=== PATIENT | female | born 1995 | race Two or more races ===

== ENCOUNTER → 2017-03-26 | Outpatient (CLI) | payer OTHER ==
[~2017-03-26] MED LIST: PREN1CAP PO; PREN1MIS10; TERC0.8C VAGINAL
== END ==
LOC: HPND 12:36
PROVIDERS: ATTEND Obstetrics & Gynecology
DX: O35.8XX0 Maternal care for other (suspected) fetal abnormality and damage, not applicable or unspecified (principal); O26.13 Low weight gain in pregnancy, third trimester; Z36.9 Encounter for antenatal screening, unspecified
CPT/HCPCS: 76811

== ENCOUNTER 2017-04-03 14:16 | Emergency (ER) | payer OTHER ==
--- NOTE | 2017-04-03 15:11 | PD ---
HPI Chief Complaint Possible rupture membranes Date Seen: Apr 03, 2017 Time Seen: 15:05 Travel History International Travel<30 Days: No Contact w/Intl Traveler<30Days: No History of Present Illness HPI Patient is a 22-year-old at 32/4 weeks presenting with possible rupture membranes. [facility] is a [facility] patient Estimated date of delivery is 05/25/17 Visit she noticed leaking of fluid going down her leg at 2:58 PM yesterday. States the fluid appeared clear. States that she is having contractions but attributes them to [place]. Denies vaginal bleeding, endorses movement. No complications thus far. Weeks Gestation: 32 Para: 0 : 2 Miscarriage: 1 History Past Medical History Medical History: Denies Significant Hx Obstetric History Obstetric History History of miscarriage in 12/2015 - states that occurred early in Past Surgical History Surgical History: No Previous Surgery Family History Family History: Negative Social History Alcohol Use: No Tobacco Use: No Substance Abuse: No Allergies-Medications (Allergen,Severity, Reaction): Coded Allergies: No Known Allergies (Verified Adverse Reaction, Unknown, 04/03/17) Home Meds Active Scripts Vit W/ Fe Polysacch C (Vitafol Ultra 29-0.6-0.4-200 mg) 1 Cap Cap, 1 TAB PO DAILY, #90 BOTTLE 4 Refills Prov:Annette Aponte 11/12/16 Iron W/ Vitamins (Vitafol) 1 Tab Tab Prov:Annette Aponte 11/12/16 Reported Medications Vit W/ Ferrous Fumara (One A Day Womens 28-0.8 & 223 mg) 1 Mis Mis 11/12/16 Discontinued Scripts Terconazole Vaginal Cream (Terconazole Vaginal Cream) 0.8 % Cream, 1 APPL VAGINAL HS for Fungal Infection, #20 GM 1 Refill For 3 days. Prov:Carmelita Vieira CNM [facility] 02/13/17 Review of Systems Except as stated in HPI: all other systems reviewed are Neg Physical Exam Narrative GENERAL: Well-nourished, well-developed patient. SKIN: Warm and dry. HEAD: Normocephalic and atraumatic. EYES: No scleral icterus. No injection or drainage. NECK: Supple, trachea midline. No JVD. CARDIOVASCULAR: Regular rate and rhythm without murmurs, gallops, or rubs. RESPIRATORY: Breath sounds equal bilaterally. No accessory muscle use. ABDOMEN/GI: Abdomen soft, non-tender, bowel sounds present, no rebound, no guarding GENITOURINARY: Cervix: Posterior Dilatation: 0 Effacement: [-] Station: [-] Presentation: [-] Membranes: [intact or ruptured] Uterine Contractions: Appears to be Uterine irritability FHT's: Category: 1 Baseline: 134 Reactive: Yes Variability: Moderate Decels: none EXTREMITIES: No cyanosis or edema. NEUROLOGICAL: Awake and alert. Motor and sensory grossly within normal limits. Normal speech. Data Data Vital Signs Reviewed: Yes Labs Initial Lab Date: Nov 12, 2016 Blood Type: B D (Rh) Type: Positive Antibody Screen: negative Hematocrit (%): 38.2 Hemoglobin (dL): 12.9 Pap Test: normal (+YEAST) Rubella: Not immune VDRL: negative Urine Screen: Other Urine Culture: gbs POS HBsAg: negative HIV: negative Chlamydia: negative Gonorrhea: negative Cystic Fibrosis: negative TSH: 2.03 Sickle Cell: Positive MSAFP/Multiple Markers: negative (NIPT NEG/FEMALE,MSAFP NEG) Visit Date: Mar 13, 2017 Hematocrit (%): 39.1 Hemoglobin (dL): 13.1 Diabetes Screen - 1-hr GGT: 98 HIV: Negative Hepatitis B: Negative MDM Plan Patient is a 22-year-old at 32/4. Category 1 tracing is reassuring, cervix is closed Amnisure negative No concern for active labor Discharge patient with instructions to return with rupture fluids, vaginal bleeding, frequent, painful contractions DW Dr. Butler Diagnosis Diagnosis: Primary Impression: 32 weeks gestation of Disposition: DISCHARGE HOME Condition: Stable Cori Lai MD R1 Apr 03, 2017 15:11
== END 2017-04-03 15:30 | disposition home or self-care (01) ==
LOC: HOBED 14:16
DX: O26.893 Other specified pregnancy related conditions, third trimester (principal); Z3A.32 32 weeks gestation of pregnancy
CPT/HCPCS: 84112; 99283

== ENCOUNTER 2017-05-17 15:31 | Inpatient (IN) | payer OTHER ==
[~2017-05-17] VITALS: Ht 157.5 cm; Wt 65.0 kg
[2017-05-17] VITALS (20 sets, daily range): BP systolic 119–151; BP diastolic 78–93; PULSE 51–69; RESP 18; TEMP 97.8–98
[~2017-05-17 15:31] MED LIST changes: +AMOX500T PO; +TERC.4%V VAGINAL; -TERC0.8C VAGINAL
[2017-05-17] MEDS ORDERED: LACTATED RINGER'S 1000 ML INJ 1,000 ML IV PRN (16:34)
--- NOTE | 2017-05-17 16:34 | PD ---
HPI Chief Complaint ctx, ?LOF Date Seen: May 17, 2017 Time Seen: 16:27 Travel History International Travel<30 Days: No Contact w/Intl Traveler<30Days: No Known Affected Area: No History of Present Illness HPI 22y/o @ 38.6wks. She has PNC at [facility]. She presents today reporting ctx since noon which are painful and ?LOF right before ctx started. She reports that baby is moving well. No VB. She states that she was 1cm in the office last week. She states that she is GBS+ and recently took amoxicillin for it. Weeks Gestation: 38 Para: 0 : 2 History Past Medical History Medical History: Denies Significant Hx Obstetric History Obstetric History AB x1 current Past Surgical History Narrative Surgical wisdom teeth extraction Family History Family History: Negative Social History Alcohol Use: No Tobacco Use: No Substance Abuse: No Allergies-Medications (Allergen,Severity, Reaction): Coded Allergies: No Known Allergies (Verified Adverse Reaction, Unknown, 04/29/17) Home Meds Active Scripts Amoxicillin (Amoxicillin) 500 Mg Tab, 500 MG PO TID for Infection for 7 Days, # 21 TAB 0 Refills Prov:Carmelita Vieira CNM [facility] [place] 05/05/17 Terconazole Vaginal Cream (Terazol 7 Vaginal Cream) 0.4 % Cream, 1 APPL VAGINAL HS for Fungal Infection, #45 GM 0 Refills 1 applicatorful intravaginally x 7 nights Prov:Rasta Gaspar MD 04/29/17 Vit W/ Fe Polysacch C (Vitafol Ultra 29-0.6-0.4-200 mg) 1 Cap Cap, 1 TAB PO DAILY, #90 BOTTLE 4 Refills Prov:Annette Aponte 11/12/16 Iron W/ Vitamins (Vitafol) 1 Tab Tab Prov:Annette Aponte 11/12/16 Reported Medications Vit W/ Ferrous Fumara (One A Day Womens 28-0.8 & 223 mg) 1 Mis Mis 11/12/16 Review of Systems Except as stated in HPI: all other systems reviewed are Neg Physical Exam Narrative General: well developed, well nourished, no acute distress HEENT: normocephalic atraumatic, extraocular movements intact, neck supple Abdomen: soft, gravid, nontender, nondistended Uterus: fundus term Extremities: full range of motion Skin: normal coloration, no rashes, no suspicious skin lesions noted Neurologic: cranial nerves 2-12 grossly intact, normal muscle tone, normal gait Psychiatric: normal mood and affect, appropriate FHTs: 135, +accels, no decels, moderate variability, reactive Justin: ctx q2-3m Cvx: /50/-2 Data Data Vital Signs Reviewed: Yes Orders Orders Vital Signs (Adult) .ON ADMISSION (05/17/17 16:25) ^ Labor Status (05/17/17 16:25) ^ Non Stress Test (05/17/17 16:) Pamg-1 Test .ONCE (05/17/17 16:25) Group B Strep: Positive MDM Plan 22y/o @ 38.6wks with ctx and ?LOF -- amnisure positive -- FHTs cat 1 -- cvx 250/-2 -- admit to L&D -- CLD, epidural/mayo PRN -- pitocin PRN -- PCN for GBS+ Diagnosis Diagnosis: Primary Impression: 38 weeks gestation of Additional Impressions: Leakage of amniotic fluid Uterine contractions during GBS (group B Streptococcus carrier), +RV culture, currently Anahi Rivers MD May 17, 2017 16:33
--- NOTE | 2017-05-17 16:38 | HHI.PR ---
[facility] Note Note HPI HPI Chief Complaint ctx, ?LOF Date Seen: May 17, 2017 Time Seen: 16:27 Travel History International Travel<30 Days: No Contact w/Intl Traveler<30Days: No Known Affected Area: No History of Present Illness HPI 22y/o @ 38.6wks. She has PNC at [facility]. She presents today reporting ctx since noon which are painful and ?LOF right before ctx started. She reports that baby is moving well. No VB. She states that she was 1cm in the office last week. She states that she is GBS+ and recently took amoxicillin for it. Weeks Gestation: 38 Para: 0 : 2 History (Limited) History Past Medical History Medical History: Denies Significant Hx Obstetric History Obstetric History AB x1 current Past Surgical History Narrative Surgical wisdom teeth extraction Family History Family History: Negative Social History Alcohol Use: No Tobacco Use: No Substance Abuse: No Allergies-Medications Allergies-Medications (Allergen,Severity, Reaction): Coded Allergies: No Known Allergies (Verified Adverse Reaction, Unknown, 04/29/17) Home Meds Active Scripts Amoxicillin (Amoxicillin) 500 Mg Tab, 500 MG PO TID for Infection for 7 Days, # 21 TAB 0 Refills Prov:Carmelita Vieira CNM [facility] 05/05/17 Terconazole Vaginal Cream (Terazol 7 Vaginal Cream) 0.4 % Cream, 1 APPL VAGINAL HS for Fungal Infection, #45 GM 0 Refills 1 applicatorful intravaginally x 7 nights Prov:Rasta Gaspar MD 04/29/17 Vit W/ Fe Polysacch C (Vitafol Ultra 29-0.6-0.4-200 mg) 1 Cap Cap, 1 TAB PO DAILY, #90 BOTTLE 4 Refills Prov:Annette Aponte 11/12/16 Iron W/ Vitamins (Vitafol) 1 Tab Tab Prov:Annette Aponte 11/12/16 Reported Medications Vit W/ Ferrous Fumara (One A Day Womens 28-0.8 & 223 mg) 1 Mis Mis 11/12/16 ROS Review of Systems Except as stated in HPI: all other systems reviewed are Neg Physical Exam Physical Exam Narrative General: well developed, well nourished, no acute distress HEENT: normocephalic atraumatic, extraocular movements intact, neck supple Abdomen: soft, gravid, nontender, nondistended Uterus: fundus term Extremities: full range of motion Skin: normal coloration, no rashes, no suspicious skin lesions noted Neurologic: cranial nerves 2-12 grossly intact, normal muscle tone, normal gait Psychiatric: normal mood and affect, appropriate FHTs: 135, +accels, no decels, moderate variability, reactive [place]: ctx q2-3m Cvx: /-2 Data Data Data Vital Signs Reviewed: Yes Orders Orders Vital Signs (Adult) .ON ADMISSION (05/17/17 16:25) ^ Labor Status (05/17/17 16:25) ^ Non Stress Test (05/17/17 16:25) Pamg-1 Test .ONCE (05/17/17 16:25) Group B Strep: Positive MDM MDM Plan 22y/o @ 38.6wks with ctx and ?LOF -- amnisure positive -- FHTs cat 1 -- cvx /-2 -- admit to L&D -- CLD, epidural/mayo PRN -- pitocin PRN -- PCN for GBS+ Diagnosis Diagnosis: Primary Impression: 38 weeks gestation of Additional Impressions: Leakage of amniotic fluid Uterine contractions during GBS (group B Streptococcus carrier), +RV culture, currently Anahi Rivers MD May 17, 2017 16:33 Anaih Rivers MD May 17, 2017 16:38
[2017-05-17] MEDS ORDERED: OXYTOCIN 30 UNITS-500ML PREMIX 500 ML IV PRN (16:45)
[2017-05-17] MEDS ORDERED: SODIUM CHLORID 0.9% 500 ML INJ 500 ML IV PRN (16:45)
[2017-05-17] MEDS ORDERED: CITRIC ACID-SODIUM CITRATE LIQ 30 ML UDC PO SCH (16:45)
[2017-05-17] MEDS ORDERED: MINERAL OIL 10 ML VIAL TOPICAL PRN (16:45)
[2017-05-17] MEDS ORDERED: LIDOCAINE HCL 1% 50 ML VIAL INFIL PRN (16:45)
[2017-05-17] MEDS ORDERED: PENICILLIN G POTASSIUM INJ 5,000,000 UNITS in SODIUM CHLORIDE 0.9% INJ 100 ML IV ONE (16:45)
[2017-05-17] MEDS ORDERED: LIDOCAINE HCL 1% 50 ML VIAL I-DERMAL PRN (16:45)
[2017-05-17] MEDS ORDERED: ONDANSETRON HCL 4 MG/2 ML VIAL IV PUSH PRN (16:45)
[2017-05-17] MEDS ORDERED: OXYTOCIN 30 UNITS-500ML PREMIX 500 ML IV ONE (16:45)
[2017-05-17] MEDS ORDERED: SODIUM CHLOR 0.9% 1000 ML INJ 1,000 ML IV PRN (16:54)
[2017-05-17 17:14] LABS: BACTERIA, URINE RARE /hpf; BILIRUBIN, URINE NEG (NEG); BLOOD, URINE NEG (NEG); GLUCOSE,URINE NEG (NEG); KETONE, URINE NEG (NEG); NITRITE,URINE NEG (NEG); PH, URINE 6.5 (5.0-8.5); SQUAMOUS EPITHELIAL CELL URINE 6 /hpf (0-5); URINE COLOR YELLOW (YELLW/STRAW); URINE LEUKOCYTE ESTERASE MOD (NEG)
[2017-05-17] MEDS: LACTATED RINGER'S 1000 ML INJ 1,000 ML IV SCH (17:14)
[2017-05-17 17:20] LABS: AUTOMATED NEUTROPHIL # 10.9 TH/MM3 (1.8-7.7); BASOPHIL % 0.2 % (0.0-2.0); EOSINOPHIL % 0.3 % (0.0-4.0); HEMATOCRIT 38.5 % (35.0-46.0); HEMOGLOBIN 13.2 GM/DL (11.6-15.3); LYMPH % 21.6 % (9.0-44.0); LYMPHOCYTE # 3.3 TH/MM3 (1.0-4.8); MEAN CELL VOLUME 90.9 FL (80.0-100.0); MEAN CORPUSCULAR HEMOGLOBIN 31.2 PG (27.0-34.0); MEAN CORPUSCULAR HGB CONC 34.3 % (32.0-36.0); MEAN PLATELET VOLUME 10.1 FL (7.0-11.0); MONO % 6.9 % (0.0-8.0); MONOCYTE # 1.1 TH/MM3 (0-0.9); PLATELET COUNT 180 TH/MM3 (150-450); RED BLOOD COUNT 4.24 MIL/MM3 (4.00-5.30); RED CELL DISTRIBUTION WIDTH 14.4 % (11.6-17.2); WHITE BLOOD COUNT 15.3 TH/MM3 (4.0-11.0)
[2017-05-17] MEDS: PENICILLIN G POTASSIUM INJ 2,500,000 UNITS in SODIUM CHLORIDE 0.9% INJ 100 ML IV SCH (21:31)
[2017-05-17] MEDS ORDERED: fentaNYL 2MCG-BUPIV 0.125% INJ 100 ML ONE (23:51)
[2017-05-18] VITALS (91 sets, daily range): BP systolic 119–167; BP diastolic 64–97; PULSE 51–112; RESP 16–20; TEMP 97.7–98.9
[2017-05-18] MEDS ORDERED: fentaNYL 2MCG-BUPIV 0.125% 100 ML EPIDURAL SCH (01:00)
[2017-05-18] MEDS ORDERED: NO SYSTEM NARCOTICS PRN (01:00)
[2017-05-18] MEDS ORDERED: DO NOT ADMINISTER ANTICOAGULANTS PRN (01:00)
[2017-05-18] MEDS ORDERED: ePHEDrine/NS 25 MG/5 ML SYRINGE IV PUSH PRN (01:00)
[2017-05-18] MEDS: PENICILLIN G POTASSIUM INJ 2,500,000 UNITS in SODIUM CHLORIDE 0.9% INJ 100 ML IV SCH ×2 (01:11→05:14)
[2017-05-18] MEDS: LACTATED RINGER'S 1000 ML INJ 1,000 ML IV SCH ×4 (01:13→09:26)
--- NOTE | 2017-05-18 08:21 | PD.LABORPN ---
Subjective Subjective In active labor, epidural in place, moderate back pain. Otherwise reporting no concerns. (Mandeep Krik MD) Objective Vital Signs Vital Signs Date Time Temp Pulse Resp B/P (MAP) Pulse Ox O2 Delivery O2 Flow Rate FiO2 05/18/17 07:31 60 146/69 (94) 05/18/17 07:11 98.0 18 05/18/17 07:00 65 146/76 (99) 05/18/17 06:31 59 142/71 (94) 05/18/17 06:24 52 18 119/71 (87) 05/18/17 06:00 55 145/80 (101) 05/18/17 05:30 53 148/76 (100) 05/18/17 05:20 70 05/18/17 05:10 57 05/18/17 05:05 59 05/18/17 05:01 148/81 (103) 05/18/17 05:00 97.7 05/18/17 05:00 18 05/18/17 04:55 59 05/18/17 04:40 59 05/18/17 04:31 145/84 (104) 05/18/17 04:25 56 05/18/17 04:10 54 05/18/17 04:05 61 05/18/17 04:01 147/85 (105) 05/18/17 04:00 18 05/18/17 03:55 60 05/18/17 03:40 56 05/18/17 03:30 59 137/79 (98) 05/18/17 03:25 54 05/18/17 03:10 57 05/18/17 03:05 60 05/18/17 03:01 53 144/75 (98) 05/18/17 03:00 98.0 18 05/18/17 02:55 57 05/18/17 02:40 61 05/18/17 02:37 145/82 (103) 05/18/17 02:30 18 05/18/17 02:25 55 05/18/17 02:20 54 05/18/17 02:15 167/87 (113) 05/18/17 02:10 54 05/18/17 02:03 150/93 (112) 05/18/17 02:00 55 157/93 (114) 05/18/17 02:00 18 05/18/17 01:55 58 05/18/17 01:50 55 05/18/17 01:45 149/92 (111) 05/18/17 01:40 54 05/18/17 01:30 18 146/89 (108) 05/18/17 01:25 59 05/18/17 01:15 53 143/85 (104) 05/18/17 01:15 55 05/18/17 01:14 18 05/18/17 01:10 52 05/18/17 01:10 18 05/18/17 01:00 98.0 05/18/17 01:00 51 154/72 (99) 05/18/17 00:59 51 133/71 (91) 05/18/17 00:56 130/83 (99) 05/18/17 00:54 130/78 (95) 05/18/17 00:52 135/78 (97) 05/18/17 00:51 136/79 (98) 05/18/17 00:48 132/78 (96) 05/18/17 00:46 133/74 (93) 05/18/17 00:45 126/75 (92) 05/18/17 00:42 60 134/84 (101) 05/18/17 00:38 60 127/76 (93) 05/18/17 00:36 131/87 (102) 05/18/17 00:32 59 126/72 (90) 05/18/17 00:28 64 131/72 (91) 05/18/17 00:22 138/77 (97) Objective Pelvic Exam: Cervix: midposition Dilatation: 5 cm Effacement: 100% Station: -2 Presentation: vertex Membranes: ruptured Uterine Contractions: every 3-5 min FHT's: Category: 1 Baseline: 130 Reactive: Y Variability: moderate Decels: N Weeks Gestation: 38 Pt started active labor?: Yes Artificial rupture of membrane: Yes Artificial ROM date: May 18, 2017 Artifical ROM time: 08:20 (Mandeep Kirk MD) Assessment/Plan Assessment and Plan 22yo in active labor IUP, category 1 tracing, continue to monitor s/p AROM Epidural anesthesia GBS negative Continue routine labor care (Mandeep Kirk MD) Assessment and Plan Patient seen and evaluated with resident under direct supervision, agree with assessment and plan. (Marcelino Alvarado MD) Mandeep Kirk MD May 18, 2017 08:21 Marcelino Alvarado MD May 19, 2017 07:37
[2017-05-18] MEDS ORDERED: PENICILLIN G POTASSIUM INJ 2,500,000 UNITS in SODIUM CHLORIDE 0.9% INJ 100 ML IV SCH (10:00)
--- NOTE | 2017-05-18 11:58 | PD.OB.DELI ---
Weeks gestation: 38 Pt started active labor?: Yes Artificial rupture of membrane: Yes Artificial ROM date: May 18, 2017 Artifical ROM time: 08:20 Delivery date: May 18, 2017 Delivery time: 11:34 One Minute : 9 Five Minute : 9 Weight: 2740 g Placenta: Spontaneous delivery Laceration: Perineal laceration, 2 deg Repair: Chromic running Estimated blood loss: 300 mL Additional Information Delivery and repair by Dr. Kirk Supervised by Dr. Alvarado (Mandeep Kirk MD) Additional Information Patient seen and evaluated with resident under direct supervision, agree with assessment and plan. (Marcelino Alvarado MD) Mandeep Kirk MD May 18, 2017 11:58 Marcelino Alvarado MD May 18, 2017 14:24
[2017-05-18] MEDS ORDERED: ZOLPIDEM TARTRATE 5 MG TAB PO PRN (12:15)
[2017-05-18] MEDS ORDERED: SODIUM CHLORIDE 0.9% FLUSH 10 ML FLUSH IV FLUSH PRN (12:15)
[2017-05-18] MEDS ORDERED: ONDANSETRON ODT 4 MG TAB PO PRN (12:15)
[2017-05-18] MEDS ORDERED: ACETAMINOPHEN 325 MG TAB PO PRN (12:15)
[2017-05-18] MEDS ORDERED: DOCUSATE SODIUM 50 MG/SENNA 8.6 MG TAB PO PRN (12:15)
[2017-05-18] MEDS ORDERED: BENZOCAINE 20% TOPICAL SPRAY 60 ML CAN TOPICAL PRN (12:15)
[2017-05-18] MEDS ORDERED: OXYTOCIN 30 UNITS-500ML PREMIX 500 ML IV SCH (12:15)
[2017-05-18] MEDS ORDERED: ALUMINUM/MAGNESIUM/SIMETH 30 ML CUP PO PRN (12:15)
[2017-05-18] MEDS: IBUPROFEN 800 MG TAB PO PRN ×2 (13:52→23:24)
[2017-05-18] MEDS: WITCH HAZEL 50%/GLYCERIN 12.5% 40 PAD JAR TOPICAL PRN (15:35)
[2017-05-18] MEDS ORDERED: MEASLES, MUMPS, RUBELLA VACCINE 0.5 ML VIAL SQ ONE (16:00)
[2017-05-18] MEDS ORDERED: DIPHTH/TETANUS/ACEL PERTUSSIS (BOOSTER) 0.5 ML VIAL/PFS IM ONE (16:00)
[2017-05-18] MEDS ORDERED: SODIUM CHLORIDE 0.9% FLUSH 10 ML FLUSH IV FLUSH SCH (21:00)
[2017-05-19 08:00] VITALS: BP 156/97; PULSE 59; RESP 16; TEMP 98.3
--- NOTE | 2017-05-19 08:37 | HHI.OB ---
Subjective Post Day: 1 Remarks day # 1. AFVSS overnight. Pain well-controlled. Decreased lochia. Denies dysuria. No breast tenderness. She is feeding the baby via breast. Appetite good. No nausea or vomiting. + flatus. no bowel movement. Ambulating well. Denies calf pain, shortness of breath, or cough. Otherwise, she is doing well this morning and has no other complaints. (Мария Chairez MD R1) Remarks Patient seen and evaluated with resident under direct supervision, agree with assessment and plan. (Marcelino Alvarado MD) Objective Vitals/I&O Vital Signs Date Time Temp Pulse Resp B/P (MAP) Pulse Ox O2 Delivery O2 Flow Rate FiO2 05/18/17 19:34 52 157/92 (113) 05/18/17 15:36 71 142/86 (104) 05/18/17 14:15 147/76 (99) 05/18/17 14:05 97.9 59 16 137/91 (106) 05/18/17 13:36 18 05/18/17 13:30 90 129/73 (91) 05/18/17 13:16 130/73 (92) 05/18/17 13:16 77 05/18/17 13:00 139/87 (104) 05/18/17 13:00 83 05/18/17 12:58 20 05/18/17 12:45 86 127/81 (96) 05/18/17 12:31 90 131/67 (88) 05/18/17 12:15 78 131/81 (98) 05/18/17 12:00 98.6 83 20 134/86 (102) 05/18/17 12:00 83 134/86 (102) 05/18/17 11:00 112 137/64 (88) 05/18/17 10:30 70 136/81 (99) 05/18/17 10:00 63 123/75 (91) 05/18/17 09:45 98.7 05/18/17 09:31 18 05/18/17 09:30 64 128/86 (100) 05/18/17 09:00 75 126/81 (96) 05/18/17 08:45 16 Objective Remarks GENERAL: Well-nourished, well-developed patient. CARDIOVASCULAR: Regular rate and rhythm without murmurs, gallops, or rubs. RESPIRATORY: Breath sounds equal bilaterally. No accessory muscle use. ABDOMEN/GI: Abdomen soft, non-tender. Fundus: Firm, non-tender at umbilicus. GENITOURINARY: Light to moderate bleeding. EXTREMITIES: No cyanosis or edema, non-tender, without signs of DVT. Medications and IVs Current Medications Medications (Trade) Dose Ordered Sig/Francesco Route Start Time Stop Time Status Last Admin (Xylocaine 1% Inj (50 ml)) 0.1 ml UNSCH X1 PRN I-DERMAL 05/17/17 16:45 05/20/17 16:44 (Bicitra Liq) 30 ml INFORMATICS PHYSICIAN LIAISON PO 05/17/17 16:45 05/21/17 16:44 (Xylocaine 1% Inj (50 ml)) 10 ml UNSCH X1 PRN INFIL 05/17/17 16:45 05/19/17 16:44 (Muri-Lube Oil) 10 ml UNSCH PRN TOPICAL 05/17/17 16:45 (NS Flush) 2 ml BID IV FLUSH 05/18/17 21:00 (NS Flush) 2 ml UNSCH PRN IV FLUSH 05/18/17 12:15 (Tylenol) 650 mg Q4H PRN PO 05/18/17 12:15 (Motrin) 800 mg Q8H PRN PO 05/18/17 12:15 05/18/17 23:24 (Americaine 20% Top Spr) 1 spray Q4H PRN TOPICAL 05/18/17 12:15 05/18/17 15:35 (Tucks Pads) 1 applic QID PRN TOPICAL 05/18/17 12:15 05/18/17 15:35 (Yanely-Colace) 2 tab Q12H PRN PO 05/18/17 12:15 05/18/17 23:24 (Ambien) 5 mg HS PRN PO 05/18/17 12:15 (Mag-Al Plus Susp Liq) 15 ml Q8H PRN PO 05/18/17 12:15 (Zofran Odt) 4 mg Q6H PRN PO 05/18/17 12:15 (Мария Chairez MD R1) Assessment/Plan Problem List: (1) Vaginal delivery ICD Codes: O80 - Encounter for full-term uncomplicated delivery Status: Acute Assessment and Plan 22 y/o who is PPD# 1 s/p . -Continue routine care. -Percocet and Motrin PRN pain. -Encouraged OOB. Advised pelvic rest for 6 wks. -Will need a f/u appt. within 6 wks. -Re: ctrl, she would like to consider her options. -D/c in 1-2 more days. wdw OB attending (Мария Chairez MD R1) Мария Chairez MD R1 May 19, 2017 08:37 Marcelino Alvarado MD May 19, 2017 09:26
[2017-05-19] MEDS: IBUPROFEN 800 MG TAB PO PRN (14:36)
[2017-05-19 20:00] VITALS: BP 152/96; PULSE 66; RESP 18; TEMP 98; O2SAT 97
[2017-05-19] MEDS: WITCH HAZEL 50%/GLYCERIN 12.5% 40 PAD JAR TOPICAL PRN (21:18)
[2017-05-20] MEDS: IBUPROFEN 800 MG TAB PO PRN ×2 (02:42→12:04)
[2017-05-20 08:00] VITALS: BP 133/79; PULSE 61; RESP 18; TEMP 97.9; O2SAT 97
--- NOTE | 2017-05-20 08:30 | HHI.OB ---
Subjective Post Day: 2 Remarks day # 2. AFVSS overnight. Pain well-controlled. Decreased lochia. Denies dysuria. No breast tenderness. She is feeding the baby via breast. Appetite good. No nausea or vomiting. + flatus. + bowel movement. Ambulating well. Denies calf pain, shortness of breath, or cough. Otherwise, she is doing well this morning and has no other complaints. Objective Objective Remarks GENERAL: Well-nourished, well-developed patient. CARDIOVASCULAR: Regular rate and rhythm without murmurs, gallops, or rubs. RESPIRATORY: Breath sounds equal bilaterally. No accessory muscle use. ABDOMEN/GI: Abdomen soft, non-tender. Fundus: Firm, non-tender at umbilicus. GENITOURINARY: Light to moderate bleeding. EXTREMITIES: No cyanosis or edema, non-tender, without signs of DVT. Medications and IVs Current Medications Medications (Trade) Dose Ordered Sig/Francesco Route Start Time Stop Time Status Last Admin (Xylocaine 1% Inj (50 ml)) 0.1 ml UNSCH X1 PRN I-DERMAL 05/17/17 16:45 05/20/17 16:44 (Bicitra Liq) 30 ml EDUCATION SPECIALIST PO 05/17/17 16:45 05/21/17 16:44 (Muri-Lube Oil) 10 ml UNSCH PRN TOPICAL 05/17/17 16:45 (NS Flush) 2 ml BID IV FLUSH 05/18/17 21:00 (NS Flush) 2 ml UNSCH PRN IV FLUSH 05/18/17 12:15 (Tylenol) 650 mg Q4H PRN PO 05/18/17 12:15 (Motrin) 800 mg Q8H PRN PO 05/18/17 12:15 05/20/17 02:42 (Americaine 20% Top Spr) 1 spray Q4H PRN TOPICAL 05/18/17 12:15 05/18/17 15:35 (Tucks Pads) 1 applic QID PRN TOPICAL 05/18/17 12:15 05/19/17 21:18 (Yanely-Colace) 2 tab Q12H PRN PO 05/18/17 12:15 05/18/17 23:24 (Ambien) 5 mg HS PRN PO 05/18/17 12:15 (Mag-Al Plus Susp Liq) 15 ml Q8H PRN PO 05/18/17 12:15 (Zofran Odt) 4 mg Q6H PRN PO 05/18/17 12:15 (Depo-Provera Inj) 150 mg ONCE ONCE IM 05/20/17 08:30 05/20/17 08:31 UNV Assessment/Plan Problem List: (1) Vaginal delivery ICD Codes: O80 - Encounter for full-term uncomplicated delivery Status: Acute Assessment and Plan 22 y/o who is PPD# 2 s/p . -Continue routine care. -Percocet and Motrin PRN pain. -Encouraged OOB. Advised pelvic rest for 6 wks. -Will need a f/u appt. within 6 wks. -Re: ctrl, she would like Depo -D/c today dw OB attending Joe Arnold MD May 20, 2017 08:30
--- NOTE | 2017-05-20 08:32 | HHI.DCPOC ---
Discharge Care Plan Diagnosis: (1) care following vaginal delivery Report Symptoms to Your Doctor -Temperature above 100.5 degrees -Redness, of incision or excessive or foul smelling drainage -Unusual pain or calf pain -Increased vaginal bleeding -Painful or difficulty urinating -Feelings of extreme sadness or anxiety after 2 weeks Goals to Promote Your Health * To prevent worsening of your condition and complications * To maintain your health at the optimal level Directions to Meet Your Goals Take your medications as prescribed Follow your dietary instruction Follow activity as directed Ensure plenty of rest for recovery Drink fluids for hydration Keep your appointments as scheduled Take your immunizations and boosters as scheduled If your symptoms worsen call your PCP, if no PCP go to Urgent Care Center or Emergency Room Smoking is Dangerous to Your Health. Avoid second hand smoke Call the 24-hour crisis hotline for domestic abuse at Joe Arnold MD May 20, 2017 08:32
[2017-05-20] MEDS ORDERED: medroxyPROGESTERone ACETATE SUSP 150 MG/ML SYRINGE IM SCH (09:00)
[2017-05-20] MEDS ORDERED: PERI PO (09:21)
[2017-05-20] MEDS ORDERED: IBUP1TAB7 PO (09:21)
== END 2017-05-20 16:37 | disposition home or self-care (01) | DRG 775 ==
LOC: HOBED 15:31 → H2EA 16:32 → H1EA 05-18 15:00
PROVIDERS: ADMIT Obstetrics & Gynecology; ATTEND Obstetrics & Gynecology
PROC: 10E0XZZ Delivery of Products of Conception, External Approach (ICD-10-PCS; principal; 2017-05-18)
PROC: 0KQM0ZZ Repair Perineum Muscle, Open Approach (ICD-10-PCS; 2017-05-18)
PROC: 10907ZC Drainage of Amniotic Fluid, Therapeutic from Products of Conception, Via Natural or Artificial Opening (ICD-10-PCS; 2017-05-18)
PROC: 00HU33Z Insertion of Infusion Device into Spinal Canal, Percutaneous Approach (ICD-10-PCS; 2017-05-18)
PROC: 3E0R3BZ Introduction of Anesthetic Agent into Spinal Canal, Percutaneous Approach (ICD-10-PCS; 2017-05-18)
DX: O70.1 Second degree perineal laceration during delivery (principal); Z37.0 Single live birth; O99.824 Streptococcus B carrier state complicating childbirth; Z3A.38 38 weeks gestation of pregnancy
CPT/HCPCS: 59025; 80307; 81001; 84112; 85025; 86900; 86901; 90715; J1050; J2405; J2540; J2590; J3010; J7120